=== PATIENT | female | born 1970 | race African-American/Black ===

== ENCOUNTER → 2016-04-13 | Outpatient (CLI) | payer OTHER | LOC: FIMAGING 13:29 | PROVIDERS: ATTEND Internal Medicine Endocrinology, Diabetes & Metabolism | DX: E04.2 Nontoxic multinodular goiter (principal) ==

== ENCOUNTER 2016-06-28 15:01 | Emergency (ER) | payer OTHER ==
--- NOTE | 2016-06-28 15:19 | CPEKG ---
Heart Rate: 86 RR Interval: 698 P-R Interval: 156 QRSD Interval: 88 QT Interval: 380 QTC Interval: 455 P [place]: 77 QRS [place]: 57 T Wave [place]: 55 EKG Severity - NORMAL ECG - EKG Impression: SINUS RHYTHM Electronically Signed By: Eyad Irvin 28-Jun-2016 15:21:34
--- NOTE | 2016-06-28 15:59 | EDPHY ---
H & P Stated Complaint: SATURDAY HAD HEART PALPITATIONS, CHEST PAIN SINCE YESTERDAY HPI/ROS: CHIEF COMPLAINT: Chest Pain HISTORY OF PRESENT ILLNESS: Patient complains of chest pain. This originally started yesterday afternoon while at rest. It is retrosternal chest pain does not radiate. Associated with some palpitations on Saturday with some subsequent shortness of breath over the past 2 days. No fever or chills. No cough. Mild- to-moderate pain. The pain is worse with inspiration. No worse with exertion regarding the pain. The shortness of breath does get worse when going up stairs. No recent travel or surgery. No history of venous thrombolic event. No hypertension, diabetes, dyslipidemia, coronary artery disease. No previous chest pain or cardiac diagnoses. FAMILY HISTORY CARDIAC: Negative PRIOR CARDIAC WORKUP: Greater than 5 years ago in [facility] REVIEW OF SYSTEMS: Ten systems reviewed and are negative unless otherwise noted in the HPI EXAMINATION: General Appearance: Alert, no distress Head: normocephalic, atraumatic Eyes: Pupils equal and round, no conjunctival pallor or injection ENT, Mouth: Mucous membranes moist. Uvula midline. Neck: Normal inspection, supple, non-tender Respiratory: Lungs are clear to auscultation. No wheezing, rhonchi or crackles. Tenderness upon palpation of the left side of the chest Cardiovascular: Regular rate and rhythm. No murmur. Pulses intact distally. Gastrointestinal: Abdomen is soft and nontender Back: non-tender, no bony abnormalities Neurological: A&O, nonfocal, GCS 15. Skin: Warm and dry, no rash Extremities: Nontender, no pedal edema Psychiatric: Mood and affect normal DIFFERENTIAL DIAGNOSES: Including but not limited to in no particular order: Acute Chest Pain, ACS, Stable Angina, Pneumonia, PE, duodenitis, gastritis, esophagitis, GERD MDM: 3:49 p.m. Chest pain that started yesterday afternoon. Vital signs are stable. Laboratory studies, chest x-ray are pending. No personal or family history risk factors. 4:25 p.m. Chest x-ray and CBC are unremarkable. Troponin and D-dimer pending at this time. Vital signs remained stable. 4:55 p.m. Troponin is negative. As is the rest of the chemistry. She is resting comfortably vital signs stable. Suspect this is likely due to pleurisy. Patient notes that she does remember having some generalized malaise and diarrhea earlier this week as well. 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 She is to return to the ER for any change in her symptoms, lightheadedness, syncope. She is discharged home stable condition. EKG: Interpreted by Dr. Irvin Sinus rhythm without acute ischemia SUPERVISION: This patient was independently evaluated without direct examination by the attending physician. Case was discussed with attending physician. Case discussed with Dr. Irvin Source: Patient, Family Exam Limitations: No limitations - Personal History LMP (Females 10-55): Hysterectomy Current Tetanus Diphtheria and Acellular Pertussis (TDAP): Yes Tetanus Vaccine Date: < 10 YEARS - Medical/Surgical History Hx Asthma: No Hx Chronic Respiratory Disease: No Hx Diabetes: No Hx Cardiac Disease: No Hx Renal Disease: No Hx Cirrhosis: No Hx Alcoholism: No Hx HIV/AIDS: No Hx Splenectomy or Spleen Trauma: No Other PMH: THYROID ISSUES, - Social History Smoking Status: Never smoked Constitutional: Initial Vital Signs Temperature (C) 98.8 F 06/28/16 15:03 Heart Rate 78 06/28/16 15:03 Respiratory Rate 16 06/28/16 15:03 Blood Pressure 113/68 06/28/16 15:03 O2 Sat (%) 100 06/28/16 15:03 O2 Delivery Mode Room Air Medical Decision Making - Diagnostics Imaging Results: Imaging Impressions Chest X-Ray 06/28/16 15:13 Impression: Negative - Data Points Laboratory Results: Laboratory Results 06/28/16 16:00 06/28/16 16:00 06/28/16 06/28/16 06/28/16 16:00 16:00 16:00 WBC 9.46 10^3/uL 10^3/uL (3.80-9.50) RBC 4.40 10^6/uL 10^6/uL (4.18-5.33) Hgb 13.3 g/dL g/dL (12.6-16.3) Hct 39.0 % % (38.0-47.0) MCV 88.6 fL fL (81.5-99.8) MCH 30.2 pg pg (27.9-34.1) MCHC 34.1 g/dL g/dL (32.4-36.7) RDW 13.2 % % (11.5-15.2) Plt Count 191 10^3/uL 10^3/uL (150-400) MPV 11.0 fL fL (8.7-11.7) Neut % (Auto) 56.7 % % (39.3-74.2) Lymph % (Auto) 34.6 % % (15.0-45.0) [place] % (Auto) 6.4 % % (4.5-13.0) Eos % (Auto) 1.6 % % (0.6-7.6) Baso % (Auto) 0.4 % % (0.3-1.7) Nucleat RBC Rel Count 0.0 % % (0.0-0.2) Absolute Neuts (auto) 5.36 10^3/uL 10^3/uL (1.70-6.50) Absolute Lymphs (auto) 3.27 10^3/uL H 10^3/uL (1.00-3.00) Absolute Monos (auto) 0.61 10^3/uL 10^3/uL (0.30-0.80) Absolute Eos (auto) 0.15 10^3/uL 10^3/uL (0.03-0.40) Absolute Basos (auto) 0.04 10^3/uL 10^3/uL (0.02-0.10) Absolute Nucleated RBC 0.00 10^3/uL 10^3/uL (0-0.01) Immature Gran % 0.3 % % (0.0-1.1) Immature Gran # 0.03 10^3/uL 10^3/uL (0.00-0.10) PT 12.7 SEC SEC (12.0-15.0) INR 0.96 (0.83-1.16) APTT 20.0 SEC L SEC (23.0-38.0) D-Dimer 0.50 ug/mLFEU ug/mLFEU (0.00-0.50) Sodium 138 mEq/L mEq/L (134-144) Potassium 4.3 mEq/L mEq/L (3.5-5.2) Chloride 106 mEq/L mEq/L (97-110) Carbon Dioxide 22 mEq/l mEq/l (22-31) Anion Gap 10 mEq/L mEq/L (8-16) BUN 11 mg/dL mg/dL (7-23) Creatinine 0.7 mg/dL mg/dL (0.6-1.0) Estimated GFR > 60 Glucose 100 mg/dL mg/dL (70-100) Calcium 9.7 mg/dL mg/dL (8.5-10.4) Troponin I < 0.012 ng/mL ng/mL (0-0.034) Lipase 124.0 IU/L IU/L (23-300) Departure - Departure Disposition: Home, Routine, Self-Care Clinical Impression: Chest pain on respiration Condition: Good Instructions: Chest Pain (ED), Pleurisy (ED) Additional Instructions: Follow-up with primary care physician and Cardiology for further care. Return to ER for any change in her symptoms, worsening shortness of breath, fever, chills, cough or syncope Referrals: Elaine Leonardo MD [Primary Care Provider] - As per Instructions Marty Mario MD [Medical Doctor] - As per Instructions Stand Alone Forms: Work Excuse
[2016-06-28 16:20] LABS: % IMMATURE GRANULYOCYTES 0.3 % (0.0-1.1); ABSOLUTE IMMATURE GRANULOCYTES 0.03 10^3/uL (0.00-0.10); ADD DIFF? NO; ADD MORPH? NO; ADD SCAN? NO; ATYPICAL LYMPHOCYTE FLAG 0 (0-99); FRAGMENT RBC FLAG 0 (0-99); HEMOGLOBIN 13.3 g/dL (12.6-16.3); LEFT SHIFT FLG 0 (0-99); LIPEMIA HEMOLYSIS FLAG 90 (0-99); MEAN CELL HEMOGLOBIN 30.2 pg (27.9-34.1); MEAN CELL HEMOGLOBIN CONCENTR. 34.1 g/dL (32.4-36.7); MEAN CELL VOLUME 88.6 fL (81.5-99.8); PLATELET CLUMPS FLAG 20 (0-99); PLATELET COUNT 191 10^3/uL (150-400); RED CELL DISTRIBUTION WIDTH 13.2 % (11.5-15.2)
[2016-06-28 16:23] LABS: INR 0.96 (0.83-1.16); PROTIME(PATIENT) 12.7 SEC (12.0-15.0)
[2016-06-28 16:40] LABS: ANION GAP 10 mEq/L (8-16); CALCIUM 9.7 mg/dL (8.5-10.4); CARBON DIOXIDE 22 mEq/l (22-31); CHLORIDE 106 mEq/L (97-110); CREATININE 0.7 mg/dL (0.6-1.0); GLOMERULAR FILTRATION RATE > 60; GLUCOSE 100 mg/dL (70-100); POTASSIUM 4.3 mEq/L (3.5-5.2); SODIUM 138 mEq/L (134-144)
[2016-06-28 16:51] LABS: TROPONIN I < 0.012 ng/mL (0-0.034)
[2016-06-28 17:05] VITALS: BP 129/77; PULSE 80; RESP 14; TEMP 98.4; O2SAT 94
== END 2016-06-28 17:05 | disposition home or self-care (01) ==
DX: R07.1 Chest pain on breathing (principal)

== ENCOUNTER → 2016-12-27 | Outpatient (CLI) | payer OTHER | LOC: FIMAGING 14:58 | PROVIDERS: ATTEND Internal Medicine | DX: Z12.31 Encounter for screening mammogram for malignant neoplasm of breast (principal) | CPT/HCPCS: G0202 ==

== ENCOUNTER → 2017-04-17 | Outpatient (CLI) | payer OTHER | LOC: FIMAGING 13:01 | PROVIDERS: ATTEND Internal Medicine Endocrinology, Diabetes & Metabolism | DX: E04.2 Nontoxic multinodular goiter (principal) ==

== ENCOUNTER → 2017-06-21 | Outpatient (CLI) | payer OTHER ==
[~2017-06-21] MED LIST: IOPAMIDOL (ISOVUE-300) 100 ML BTL ONE
== END ==
LOC: FIMAGING 14:42
PROVIDERS: ATTEND Internal Medicine
DX: R10.32 Left lower quadrant pain (principal)
CPT/HCPCS: Q9967

== ENCOUNTER → 2017-12-06 | Outpatient (CLI) | payer OTHER | LOC: FIMAGING 14:14 | PROVIDERS: ATTEND Internal Medicine Endocrinology, Diabetes & Metabolism | DX: E04.2 Nontoxic multinodular goiter (principal) ==

== ENCOUNTER → 2018-02-13 | Outpatient (CLI) | payer OTHER | LOC: FIMAGING 15:28 | PROVIDERS: ATTEND Physician Assistant Medical | DX: Z12.31 Encounter for screening mammogram for malignant neoplasm of breast (principal) ==